=== PATIENT | female | born 1965 | race American Indian/Alaskan Native ===

== ENCOUNTER 2017-04-24 07:13 | Day surgery (SDC) | payer MEDICAID ==
[~2017-04-24 07:13] MED LIST: CLEOCIN 900 MG/50 mL 900 MG/50 ML BAG IV NR; LACTATED RINGERS 1,000 ML IV SCH; PEPCID PO NR; VERSED IV NR
[2017-04-24] MEDS ORDERED: ADRENALIN ONE (07:15)
[2017-04-24 08:53] VITALS: BP 129/78
[2017-04-24] MEDS ORDERED: SUBLIMAZE IV NR (09:00)
[2017-04-24] MEDS ORDERED: PROVENTIL IH NR (09:00)
[2017-04-24] MEDS ORDERED: NEURONTIN PO NR (09:00)
[2017-04-24] MEDS ORDERED: SUBLIMAZE ONE (09:24)
[2017-04-24] MEDS ORDERED: XYLOCAINE MPF 2% ONE (09:24)
[2017-04-24] MEDS ORDERED: DIPRIVAN 10 MG/ML IV ONE (09:24)
[2017-04-24] MEDS ORDERED: QUELICIN ONE (09:24)
[2017-04-24] MEDS ORDERED: ZEMURON IV ONE (09:24)
== END 2017-04-24 07:14 | disposition home or self-care (01) ==
LOC: OR 07:13
PROVIDERS: ATTEND Orthopaedic Surgery
DX: M75.41 Impingement syndrome of right shoulder (principal); Z53.8 Procedure and treatment not carried out for other reasons
CPT/HCPCS: J0171; J0330; J2704; J3010

== ENCOUNTER 2017-04-28 11:47 | Emergency (ER) | payer MEDICAID ==
[~2017-04-28 11:47] MED LIST changes: -CLEOCIN 900 MG/50 mL 900 MG/50 ML BAG IV NR; +CLEOCIN 900 MG/50 mL 900 MG/50 ML BAG IV SCH; -LACTATED RINGERS 1,000 ML IV SCH; +NACL 0.9% 1000 ML 1,000 ML IV SCH; +SUBLIMAZE IV NR; +SUBLIMAZE IV PRN
--- NOTE | 2017-04-28 13:36 | Anesthesia Consultation ---
Anesthesia Consult and Med Hx Date of service: 04/28/17 - Airway Anesthetic Teeth Evaluation: Good ROM Head & Neck: Adequate Mental/Hyoid Distance: Adequate Mallampati Class: Class II Intubation Access Assessment: Probably Good - Pulmonary Exam CTA: Yes - Cardiac Exam Cardiac Exam: RRR - Pre-Operative Health Status ASA Pre-Surgery Classification: ASA3 Proposed Anesthetic Plan: General Nerve Block: IS - Pulmonary Hx Smoking: Yes (1/2 PPD) Hx Asthma: Yes SOB: Yes (SOB) COPD: Yes (DAILY INHALES , STEROIDS) Hx Sleep Apnea: Yes (DX SLEEP APNEA , NO CPAP USE.) - Cardiovascular System Hx Hypertension: Yes (X 7 YRS) - Central Nervous System CVA: Yes (TIA(-2014,2017) RT LEG WEAKNESS,BURNING) Hx Back Pain: Yes - Gastrointestinal Hx Ulcer: Yes - Endocrine Hx Non-Insulin Dependent Diabetes: Yes - Hematic Hx Anemia: Yes - Other Systems Hx Obesity: Yes (morbid, BMI >40)
--- NOTE | 2017-04-28 13:37 | Anesthesia Day of Surgery ---
Anesthesia Day of Surgery - Day of Surgery Patient Examined: Yes Patient H&P Reviewed: Yes Patient is NPO: Yes
[2017-04-28] MEDS ORDERED: PROVENTIL IH NR (13:45)
[2017-04-28] MEDS ORDERED: DIPRIVAN 10 MG/ML IV ONE (13:53)
[2017-04-28] MEDS ORDERED: SUBLIMAZE ONE (13:53)
[2017-04-28] MEDS ORDERED: XYLOCAINE MPF 2% ONE (13:57)
[2017-04-28] MEDS ORDERED: MARCAINE 0.5% 30 ML INFILTRATI ONE (14:08)
[2017-04-28] MEDS ORDERED: NORMODYNE IV PRN (15:18)
[2017-04-28] MEDS ORDERED: NITROSTAT SL PRN (15:18)
[2017-04-28] MEDS ORDERED: MORPHINE IV PRN (15:18)
--- NOTE | 2017-04-28 15:20 | Short Stay Summary ---
Short Stay Documentation Date of service: 04/28/17 Narrative H&P: When the patient was being transferred from the hospital stretcher to the operating room table she began having subjective complaints of chest pain. The patient described the chest pain as 7/10 and located directly over her sternum. Her sat was 96 at the time and nasal O2 was applied bringing the Sat to 100, the patient's BP was obtained and noted to be 198/105 the patient was given hydralazine, a 12 lead EKG was performed that no gross evidence of acute OH, BP was rechecked and continued to be high. I do not feel comfortable proceeding with the procedure at this time. The case was cancelled. The patient was taken to recovery for resuscitation and care and the hospitalist consult was called to address the patient medical issues. Further treatment will based upon anesthesia and hosptialist recommendations. I went to the waiting room and discussed the issues with the patient family (her sister Kaykay). I also discussed with the patient we were going to delay the case. The patient and family understood and all questions were answered. They agree with the current treatment approach. - Allergies and Medications Current Medications: Allergies aspirin Allergy (Verified 04/17/17 14:55) Itching butorphanol [From Stadol] Allergy (Verified 04/17/17 14:55) Itching ketorolac [From Toradol] Allergy (Verified 04/17/17 14:55) Itching Penicillins Allergy (Verified 04/17/17 14:55) Itching Home Medications Medication Instructions Recorded Confirmed Last Taken Type ALBUTEROL Inhaler [Proair] 1 puff IH DAILY 04/17/17 04/28/17 04/28/17 09:30 History ALBUTEROL NEB's [Proventil] 2.5 mg IH TID PRN 04/17/17 04/28/17 04/28/17 08:30 History Butalb/Acetamin/Caff 50-325-40 1 each PO Q4H PRN 04/17/17 04/27/17 Unknown History [Fioricet] Ciprofloxacin HCl [Cipro] 500 mg PO BID 04/17/17 04/28/17 04/26/17 19:00 History Diclofenac Sodium 75 mg PO PRN PRN 04/17/17 04/28/17 04/21/17 09:00 History Diphenoxylate/Atropine [Lomotil] 1 tab PO DAILY 04/17/17 04/28/17 04/27/17 19: 30 History Fluticasone Propionate [Flovent 1 puff IH DAILY 04/17/17 04/28/17 04/28/17 08: 30 History Diskus] Hydralazine HCl 50 mg PO TID 04/17/17 04/28/17 04/28/17 08:30 History Montelukast [Singulair] 10 mg PO QPM 04/17/17 04/28/17 04/27/17 09:00 History Pregabalin [Lyrica] 150 mg PO BID 04/17/17 04/28/17 04/25/17 09:00 History Tizanidine HCl [Zanaflex] 4 mg PO QID 04/17/17 04/28/17 04/25/17 09:00 History cloNIDine [Catapres] 0.2 mg PO TID 04/17/17 04/28/17 04/28/17 08:30 History oxyCODONE /ACETAMINOPHEN [Percocet 1 tab PO QID 04/17/17 04/28/17 04/28/17 03: 00 History 5/325] predniSONE [Deltasone] 20 mg PO QDAY 04/17/17 04/28/17 04/27/17 20:30 History Active Medications Albuterol (Proventil) 2.5 mg IH PREOP NR Stop: 04/28/17 23:59 Last Admin: 04/28/17 13:45 Dose: 2.5 mg Famotidine (Pepcid) 20 mg PO PREOP NR Stop: 04/28/17 23:59 Last Admin: 04/28/17 13:30 Dose: 20 mg Fentanyl (Sublimaze) 100 mcg IV ONCE NR Stop: 04/28/17 18:00 Last Admin: 04/28/17 13:10 Dose: 100 mcg Clindamycin HCl (Cleocin 900 Mg/50 Ml) 900 mg in 50 mls @ 100 mls/hr IV PREOP CODY PRN Reason: Protocol Stop: 04/28/17 23:59 Sodium Chloride (Nacl 0.9% 1000 Ml) 1,000 mls @ 75 mls/hr IV DIRECT CODY Last Admin: 04/28/17 13:29 Dose: 75 mls/hr Methylprednisolone Sodium Succinate (Solu-Medrol) 125 mg IV PREOP NR Stop: 04/28/17 23:59 Last Admin: 04/28/17 13:43 Dose: 125 mg Midazolam HCl (Versed) 2 mg IV PREOP NR Stop: 04/28/17 23:59 Last Admin: 04/28/17 14:07 Dose: 2 mg - Brief post op/procedure progress note Date of procedure: 04/28/17 (case cancelled) Short Stay Discharge Plan Follow up with: Maxx ALONZO MD [Primary Care Provider] - 7 Days
--- NOTE | 2017-04-28 15:23 | Event Note ---
Date: 04/28/17 51 yo with PMH of COPD, current smoker, HTN, DM, TIA presents for right shoulder arthroscopy in which she underwent a interscalene block. Patient went back to OR for surgery but started complaining of chest pain in the middle of her chest upon arrival. BP was elevated at 196/110. She was given 20mg of hydralazine. EKG was obtained. No ST elevation or depression observed. It was decided to bring the patient to the recovery area and have hospitalist evaluate patient for chest pain. Cardiac enzymes ordered as well as Morphine, Nitroglycerin SL and Labetalol.
[2017-04-28] MEDS ORDERED: APRESOLINE ONE (15:28)
[2017-04-28 16:22] VITALS: BP 151/83
[2017-04-28 16:49] LABS: Basophils % (Auto) 0.7 % (0.0-1.8); Hematocrit 44.9 % (30.3-42.9); Hemoglobin 14.3 gm/dl (10.1-14.3); Mean Corpuscular HGB Conc 32 % (30-34); Mean Corpuscular Hemoglobin 28 pg (28-32); Mean Corpuscular Volume 87 fl (79-97); Platelet Count 345 K/mm3 (140-440); Red Blood Count 5.15 M/mm3 (3.65-5.03); Red Cell Distribution Width 14.2 % (13.2-15.2); White Blood Count 14.3 K/mm3 (4.5-11.0)
[2017-04-28] MEDS ORDERED: DUONEB *Not for PRN Use IH ONE (17:00)
[2017-04-28 17:11] LABS: Anion Gap 23 mmol/L; BUN/Creatinine Ratio 19; Blood Urea Nitrogen 13 mg/dL (7-17); Calcium 9.1 mg/dL (8.4-10.2); Carbon Dioxide 22 mmol/L (22-30); Chloride 102.5 mmol/L (98-107); Glucose 160 mg/dL (65-100); Potassium 4.3 mmol/L (3.6-5.0); Sodium 143 mmol/L (137-145)
[2017-04-28 17:14] LABS: Creatine Kinase MB 2.3 ng/mL (0.0-4.0)
--- NOTE | 2017-04-28 17:14 | Emergency Department Report ---
ED Shortness of Breath HPI - General Chief Complaint: Dyspnea/Respdistress Time Seen by Provider: 04/28/17 16:45 Source: patient, RN notes reviewed Mode of arrival: Wheelchair Limitations: No Limitations - History of Present Illness Initial Comments: 51 yo female who comes in today due to shortness of breath. She was scheduled to have a right rotator cuff repair on today. However, she stated that she had pain in her body diffusely with the nerve block prior to surgery. At that time , she admitted to shortness of breath. History of diabetes, hypertension, asthma, copd, and anxiety. The patient later stated that [facility] and has been times the last four days. Denies home oxygen use. Admits to continued smoking daily times many years. MD Complaint: shortness of breath -: unknown (prior to arrival ) Radiation: other (diffusely ) Severity: moderate Pain Scale: 4 Quality: aching Consistency: now resolved Improves With: oxygen, bronchodilators Worsens With: exertion, movement Known History Of: COPD, asthma, diabetes Context: medication noncompliance ([facility] ) Associated Symptoms: chest pain Treatments Prior to Arrival: none - Related Data Home Oxygen Therapy: No Home Medications Medication Instructions Recorded Confirmed Last Taken ALBUTEROL Inhaler [Proair] 1 puff IH DAILY 04/17/17 04/28/17 04/28/17 09:30 ALBUTEROL NEB's [Proventil] 2.5 mg IH TID PRN 04/17/17 04/28/17 04/28/17 08:30 Butalb/Acetamin/Caff 50-325-40 1 each PO Q4H PRN 04/17/17 04/27/17 Unknown [Fioricet] Ciprofloxacin HCl [Cipro] 500 mg PO BID 04/17/17 04/28/17 04/26/17 19:00 Diclofenac Sodium 75 mg PO PRN PRN 04/17/17 04/28/17 04/21/17 09:00 Diphenoxylate/Atropine [Lomotil] 1 tab PO DAILY 04/17/17 04/28/17 04/27/17 19:30 Fluticasone Propionate [Flovent 1 puff IH DAILY 04/17/17 04/28/17 04/28/17 08:30 Diskus] Hydralazine HCl 50 mg PO TID 04/17/17 04/28/17 04/28/17 08:30 Montelukast [Singulair] 10 mg PO QPM 04/17/17 04/28/17 04/27/17 09:00 Pregabalin [Lyrica] 150 mg PO BID 04/17/17 04/28/17 04/25/17 09:00 Tizanidine HCl [Zanaflex] 4 mg PO QID 04/17/17 04/28/17 04/25/17 09:00 cloNIDine [Catapres] 0.2 mg PO TID 04/17/17 04/28/17 04/28/17 08:30 oxyCODONE /ACETAMINOPHEN [Percocet 1 tab PO QID 04/17/17 04/28/17 04/28/17 03:00 5/325] predniSONE [Deltasone] 20 mg PO QDAY 04/17/17 04/28/17 04/27/17 20:30 Allergies Allergy/AdvReac Type Severity Reaction Status Date / Time aspirin Allergy Itching Verified 04/17/17 14:55 butorphanol [From Stadol] Allergy Itching Verified 04/17/17 14:55 ketorolac [From Toradol] Allergy Itching Verified 04/17/17 14:55 Penicillins Allergy Itching Verified 04/17/17 14:55 ED Review of Systems ROS: Stated complaint: Other details as noted in HPI Constitutional: denies: chills, fever Eyes: denies: eye pain, eye discharge, vision change ENT: denies: ear pain, throat pain Respiratory: see HPI Cardiovascular: as per HPI Endocrine: no symptoms reported Gastrointestinal: denies: abdominal pain, nausea, diarrhea Genitourinary: denies: urgency, dysuria, discharge Musculoskeletal: denies: back pain, joint swelling, arthralgia Skin: denies: rash, lesions Psychiatric: anxiety Hematological/Lymphatic: denies: easy bleeding, easy bruising ED Past Medical Hx - Past Medical History Previous Medical History?: Yes Hx Hypertension: Yes (X 7 YRS) Hx Diabetes: Yes (STOPPED MEDS WITH WT LOSS) Hx Headaches / Migraines: Yes Hx Asthma: Yes Hx COPD: Yes (DAILY INHALES , STEROIDS) Hx HIV: No - Surgical History Past Surgical History?: Yes Additional Surgical History: rotary cuff - Social History Smoking Status: Current Every Day Smoker Substance Use Type: None - Medications Home Medications: Home Medications Medication Instructions Recorded Confirmed Last Taken Type ALBUTEROL Inhaler [Proair] 1 puff IH DAILY 04/17/17 04/28/17 04/28/17 09:30 History ALBUTEROL NEB's [Proventil] 2.5 mg IH TID PRN 04/17/17 04/28/17 04/28/17 08:30 History Butalb/Acetamin/Caff 50-325-40 1 each PO Q4H PRN 04/17/17 04/27/17 Unknown History [Fioricet] Ciprofloxacin HCl [Cipro] 500 mg PO BID 04/17/17 04/28/17 04/26/17 19:00 History Diclofenac Sodium 75 mg PO PRN PRN 04/17/17 04/28/17 04/21/17 09:00 History Diphenoxylate/Atropine [Lomotil] 1 tab PO DAILY 04/17/17 04/28/17 04/27/17 19: 30 History Fluticasone Propionate [Flovent 1 puff IH DAILY 04/17/17 04/28/17 04/28/17 08: 30 History Diskus] Hydralazine HCl 50 mg PO TID 04/17/17 04/28/17 04/28/17 08:30 History Montelukast [Singulair] 10 mg PO QPM 04/17/17 04/28/17 04/27/17 09:00 History Pregabalin [Lyrica] 150 mg PO BID 04/17/17 04/28/17 04/25/17 09:00 History Tizanidine HCl [Zanaflex] 4 mg PO QID 04/17/17 04/28/17 04/25/17 09:00 History cloNIDine [Catapres] 0.2 mg PO TID 04/17/17 04/28/17 04/28/17 08:30 History oxyCODONE /ACETAMINOPHEN [Percocet 1 tab PO QID 04/17/17 04/28/17 04/28/17 03: 00 History 5/325] predniSONE [Deltasone] 20 mg PO QDAY 04/17/17 04/28/17 04/27/17 20:30 History ED Physical Exam - General Limitations: No Limitations General appearance: anxious - Head Head exam: Present: atraumatic, normocephalic - Eye Eye exam: Present: normal appearance - ENT ENT exam: Present: mucous membranes moist - Neck Neck exam: Present: normal inspection - Respiratory Respiratory exam: Present: wheezes (diffusely-minimally ) - Cardiovascular Cardiovascular Exam: Present: regular rate, normal rhythm. Absent: systolic murmur, diastolic murmur, rubs, gallop - GI/Abdominal GI/Abdominal exam: Present: soft, normal bowel sounds - Extremities Exam Extremities exam: Present: normal inspection - Back Exam Back exam: Present: normal inspection - Neurological Exam Neurological exam: Present: alert, oriented X3 - Psychiatric Psychiatric exam: Present: anxious - Skin Skin exam: Present: warm, dry, intact, normal color. Absent: rash ED Course Vital Signs 04/28/17 04/28/17 04/28/17 12:45 14:05 14:10 Temperature 97.5 F L Pulse Rate 70 64 73 Respiratory 16 14 10 L Rate Blood Pressure 153/83 156/82 167/77 Blood Pressure [Left] O2 Sat by Pulse 100 100 100 Oximetry 04/28/17 04/28/17 04/28/17 14:15 14:20 14:25 Temperature Pulse Rate 68 69 70 Respiratory 15 11 L 14 Rate Blood Pressure 169/68 176/93 151/97 Blood Pressure [Left] O2 Sat by Pulse 100 100 100 Oximetry 04/28/17 04/28/17 04/28/17 14:30 14:35 14:45 Temperature Pulse Rate 66 72 68 Respiratory 19 20 15 Rate Blood Pressure 140/82 150/91 138/87 Blood Pressure [Left] O2 Sat by Pulse 100 100 100 Oximetry 04/28/17 04/28/17 04/28/17 15:14 15:20 15:25 Temperature 97.6 F Pulse Rate 96 H 98 H 96 H Respiratory 15 15 14 Rate Blood Pressure 188/86 202/156 206/101 Blood Pressure [Left] O2 Sat by Pulse 99 94 98 Oximetry 04/28/17 04/28/17 16:13 16:27 Temperature 98.6 F 98.6 F Pulse Rate 89 89 Respiratory 23 23 Rate Blood Pressure 151/83 Blood Pressure 151/83 [Left] O2 Sat by Pulse 95 95 Oximetry - Reevaluation(s) Reevaluation #1: 12/22/17 18:16 Patient is requesting to go home AMA. I spoke with the patient about leaving, and she is not willing to change her mind. She states that [facility] is going [facility] Patient to sign AMA paperwork. She was warned about the risks of leaving. She still wants to leave. ED Medical Decision Making - Lab Data Result diagrams: 04/28/17 16:25 04/28/17 16:25 - EKG Data -: EKG Interpreted by Me (Chart dismantled to prior to reviewing before discharge) - Radiology Data Radiology results: report reviewed No acute pathology noted per radiology. - Medical Decision Making Anxiety Copd Asthma - Differential Diagnosis anxiety, copd, asthma, chronic pain Critical care attestation.: If time is entered above; I have spent that time in minutes in the direct care of this critically ill patient, excluding procedure time. ED Disposition Clinical Impression: Anxiety, COPD (chronic obstructive pulmonary disease), Asthma, Chronic pain Disposition: DC-01 TO HOME OR SELFCARE Is pt being admited?: No Does the pt Need Aspirin: No Condition: Stable Instructions: Chronic Obstructive Pulmonary Disease (ED), Asthma (ED) Additional Instructions: Return to the nearest ED for the return of chest pain, shortness of breath, fever, chills, neck, jaw, or arm pain. Referrals: Maxx ALONZO MD [Primary Care Provider] - 7 Days Forms: AMA Form Time of Disposition: 18:22
--- NOTE | 2017-04-28 17:38 | XRay Report ---
FINAL REPORT EXAM: XR CHEST 1V AP HISTORY: SOB TECHNIQUE: AP portable view of the chest PRIORS: None. FINDINGS: Lines, tubes, and devices: N/A Lungs and pleura: Trachea is normal in position. Lungs are clear of infiltrate, pleural effusion, vascular congestion, or pneumothorax. Cardiomediastinal silhouette: Cardiac and mediastinal silhouettes are unremarkable. Other: Bony structures are intact. Orthopedic tacks are present in the left humeral head. IMPRESSION: No acute cardiopulmonary process seen.
[2017-04-28 18:59] LABS: Alanine Aminotransferase 10 units/L (7-56); Albumin 4.4 g/dL (3.9-5); Albumin/Globulin Ratio 1.4 %; Alkaline Phosphatase 81 units/L (35-129); Anion Gap 26 mmol/L; BUN/Creatinine Ratio 13; Blood Urea Nitrogen 9 mg/dL (7-17); Calcium 9.1 mg/dL (8.4-10.2); Carbon Dioxide 19 mmol/L (22-30); Chloride 96.8 mmol/L (98-107); Glucose 101 mg/dL (65-100); Potassium 4.3 mmol/L (3.6-5.0); Sodium 137 mmol/L (137-145); Total Protein 7.5 g/dL (6.3-8.2)
== END 2017-04-28 18:36 | disposition home or self-care (01) ==
LOC: ED 11:47 → OR 11:47 → EDSTATUS 15:00 → ED 18:36
DX: F41.9 Anxiety disorder, unspecified (principal); J44.9 Chronic obstructive pulmonary disease, unspecified; J45.909 Unspecified asthma, uncomplicated; G89.29 Other chronic pain; I10 Essential (primary) hypertension; E11.9 Type 2 diabetes mellitus without complications; G43.909 Migraine, unspecified, not intractable, without status migrainosus; F17.200 Nicotine dependence, unspecified, uncomplicated; Z88.0 Allergy status to penicillin; Z88.8 Allergy status to other drugs, medicaments and biological substances; Z53.29 Procedure and treatment not carried out because of patient's decision for other reasons
CPT/HCPCS: 36415; 71010; 80048; 80053; 82550; 82553; 82962; 83880; 84484; 85025; 94640; 96361; 96374; 96375; 96376; 99284; J0360; J2250; J2270; J2930; J3010; J7030; J2704